=== PATIENT | female | born 1970 | race Caucasian/White ===

== ENCOUNTER → 2021-07-06 | Outpatient (CLI) | payer BC ==
--- NOTE | 2021-07-06 14:24 | US ---
EXAMINATION TYPE: US venous doppler duplex LE RT DATE OF EXAM: 07/06/2021 1:38 PM COMPARISON: NONE CLINICAL HISTORY: M79.661 PAIN RT LOWER LEG,I80.9 PHLEBITIS AND THROMBOPHLEBIT. On 07-01 patient fell off porch resulting in fx to right tib-fib and malleolus; patient complains of severe right lower leg pain and swelling after patient's cast was removed today at orthopedic office. SIDE PERFORMED: Right TECHNIQUE: The lower extremity deep venous system is examined utilizing real time linear array sonog luke with graded compression, doppler sonography and color-flow sonography. VESSELS IMAGED: Common Femoral Vein Deep Femoral Vein Greater Saphenous Vein * Femoral Vein Popliteal Vein Small Saphenous Vein * Proximal Calf Veins (* superficial vessels) Right Leg: Negative for DVT IMPRESSION: No evidence of DVT.
--- NOTE | 2021-07-06 14:33 | CT ---
EXAMINATION TYPE: CT lower leg RT wo con DATE OF EXAM: 07/06/2021 COMPARISON: None available HISTORY: FX LOWER RT LEG CT DLP: 356 mGycm Automated exposure control for dose reduction was used. TECHNIQUE: Multiplanar CT scan of the right lower leg and right ankle without IV contrast administrat ion. 3-D reconstruction images were generated on an independent workstation and reviewed. FINDINGS: Spiral comminuted mildly displaced fracture of the inferior aspect of the right tibial diaphysis, not frankly extending to the adjacent tibial articular surface. Undisplaced fracture of the posterior ma lleolus extending to the adjacent tibial articular surface. Spinal fracture is seen involving the lateral malleolus extending from the posterior aspect superiorl y to the anterior aspect inferiorly with posterior proximal displacement of the distal fracture fragm ent. This fracture is seen extending to the distal tibiofibular articulation as well as the ankle francisco nt space. Rather preserved ankle mortise with a smooth talar dome. Tiny osteophytosis of the medial malleolus. Soft tissue swelling/hematoma surrounding the described fractures mainly around the ankle joint and a long the dorsal aspect of the foot. IMPRESSION: Comminuted spiral fracture of the distal tibial diaphysis with a nondisplaced fracture of the posteri or malleolus and a mildly displaced fracture of the lateral malleolus extending to the ankle joint sp mary as described above. Recommend orthopedic consultation.
== END | disposition home or self-care (01) ==
LOC: RADUSWWP 13:07
PROVIDERS: ATTEND Orthopaedic Surgery
DX: S82.62XA Displaced fracture of lateral malleolus of left fibula, initial encounter for closed fracture (principal); S82.392A Other fracture of lower end of left tibia, initial encounter for closed fracture; I80.9 Phlebitis and thrombophlebitis of unspecified site; X58.XXXA Exposure to other specified factors, initial encounter

== ENCOUNTER 2021-07-13 08:20 | Observation (INO) | payer BC ==
[2021-07-13] MEDS ORDERED: HYDROmorphone 0.5 MG/0.5 ML SYRINGE IVP PRN ×4 (13:21→19:17)
[2021-07-13] MEDS ORDERED: HYDROcodone/APAP 5-325MG 1 EACH TAB PO PRN ×2 (13:21)
--- NOTE | 2021-07-13 13:37 | P.CONS ---
History of Present Illness - Reason for Consult Consult date: 07/13/21 - Chief Complaint Preoperative clearance, medical management - History of Present Illness 50-year-old woman with no significant past medical history, who does not take any medications at home, presented as a direct admission for orthopedic surgery of her right ankle after sustaining a mechanical fall. Patient has no medical history or family history of significant cardiovascular events such as strokes, MIs. Recently, she was able to walk up 3 flights of stairs without any shortness of breath or angina, METs estimation is greater than 4. Patient denies fevers, chills, nausea, vomiting, chest pain, palpitations, syncope, presyncope, cough, dyspnea, abdominal pain, constipation, diarrhea, dysuria, dyschezia, numbness/weakness of extremities. No objective data to review. All Systems reviewed and pertinent positives and negatives noted in HPI, all other symptoms are negative Gen: awake, alert HEENT: normocephalic, atraumatic, good hearing acuity, moist mucous membranes Resp: good air exchange, breathing comfortably with no accessory muscle use CVS: good distal perfusion x 4, GI: soft, NTTP, ND : no SPT, no CVAT, mishra catheter not present MSK: no pitting edema, no clubbing Neuro: non-focal, moving all extremities Psych: cooperative, euthymic mood No labs or images to review at this time Assessment/plan: Preoperative clearance -Patient is low risk for low-risk procedure, is medically cleared to proceed to surgery without any further testing -Obtain CBC, BMP, magnesium following surgery Patient is full code DVT prophylaxis per orthopedic surgery team Medications and Allergies Allergies Allergy/AdvReac Type Severity Reaction Status Date / Time Unable to Assess Allergy Verified 07/09/21 16:29 Physical Exam Osteopathic Statement: *. No significant issues noted on an osteopathic structural exam other than those noted in the History and Physical/Consult.
[2021-07-13] MEDS ORDERED: LIDOCAINE 1% (10MG/ML) FOR IV START INTRADERMA PRN (14:35)
[2021-07-13] MEDS ORDERED: MIDAZOLAM 2 MG/2 ML VIAL IV PRN (14:35)
[2021-07-13] MEDS ORDERED: DEXAMETHASONE SOD PHOSPHATE 4 MG/ML 1 ML VIAL IV ONE (14:35)
[2021-07-13] MEDS ORDERED: ONDANSETRON 4 MG/2 ML VIAL IVP ONE (14:35)
[2021-07-13] MEDS: LACTATED RINGERS 1,000 ML IV SCH (15:15)
[2021-07-13 15:18] LABS: HCT 49.9 % (34.0-46.0); HGB 16.4 gm/dL (11.4-16.0); MCH 30.5 pg (25.0-35.0); MCHC 32.9 g/dL (31.0-37.0); MCV 92.7 fL (80.0-100.0); Mean Platelet Volume 7.4; Platelet Count 369 k/uL (150-450); RBC 5.38 m/uL (3.80-5.40); WBC 7.9 k/uL (3.8-10.6)
[2021-07-13 15:30] LABS: African American GFR (CKD) >90 (>60 ml/min/1.73 sqM); Anion Gap 8 mmol/L; Blood Urea Nitrogen 15 mg/dL (7-17); Calcium 9.5 mg/dL (8.4-10.2); Carbon Dioxide 25 mmol/L (22-30); Chloride 107 mmol/L (98-107); Glucose 80 mg/dL (74-99); Non-African American GFR(CKD) >90 (>60 ml/min/1.73 sqM); Potassium 4.3 mmol/L (3.5-5.1); Sodium 140 mmol/L (137-145)
[2021-07-13] MEDS ORDERED: fentaNYL (PF) 50 MCG/ML 2 ML AMP IV ONE ×2 (15:40→15:50)
[2021-07-13 15:49] LABS: HCG,Qualitative Serum Not Detected
[2021-07-13] MEDS ORDERED: MIDAZOLAM 2 MG/2 ML VIAL ONE (16:32)
[2021-07-13] MEDS ORDERED: SUCCINYLCHOLINE CHLORIDE 100 MG/5 ML SYR IV ONE (16:32)
[2021-07-13] MEDS ORDERED: GLYCOPYRROLATE 0.2 MG/ML 2 ML VIAL ONE (16:32)
[2021-07-13] MEDS ORDERED: BUPIVACAIN-EPI 0.25%-1:200,000 30 ML VIAL ONE (16:32)
[2021-07-13] MEDS ORDERED: LIDOCAINE 2% INJ 20 MG/ML (2 ML VIAL) ONE (16:32)
[2021-07-13] MEDS ORDERED: PROPOFOL 10 MG/ML 20 ML VIAL IV ONE (16:32)
[2021-07-13] MEDS ORDERED: NEOSTIGMINE 1 MG/ML 10 ML VIAL ONE (16:32)
[2021-07-13] MEDS ORDERED: ROCURONIUM 10 MG/ML (5 ML VIAL) IV ONE (16:32)
[2021-07-13] MEDS ORDERED: HYDROmorphone (PF) 1 MG/ML ONE (16:32)
[2021-07-13] MEDS ORDERED: fentaNYL (PF) 50 MCG/ML 2 ML AMP ONE (16:32)
[2021-07-13] MEDS ORDERED: ceFAZolin 3,000 MG in SODIUM CHLORIDE 0.9% IRRIGATIO 3,000 ML IRRIGATION ONE (17:26)
[2021-07-13] MEDS ORDERED: LACTATED RINGERS 1,000 ML IV ONE (18:30)
[2021-07-13] MEDS ORDERED: hydrOXYzine pamoate 25 MG CAP PO PRN (19:17)
[2021-07-13] MEDS ORDERED: SENNOSIDES-DOCUSATE SODIUM 1 EACH TAB PO PRN (19:17)
[2021-07-13] MEDS ORDERED: ONDANSETRON 4 MG/2 ML VIAL IVP PRN (19:17)
--- NOTE | 2021-07-13 19:27 | P.OP ---
Date of Procedure: 07/13/21 Preoperative Diagnosis: 1. Right distal third tibia shaft fracture 2. Right [place] B fibula fracture 3. Right ankle posterior malleolus fracture 4. History of 1 pack per day cigarette smoking Postoperative Diagnosis: Same Procedure(s) Performed: 1. Right tibial intramedullary nail 2. Open reduction internal fixation right ankle posterior malleolus 3. Nonoperative management right ankle lateral malleolus 4. Manual application of joint stress by physician for radiography, right ankle 5. Application of short leg splint by physician, right ankle Implants: David tibial nail 315 mm x 9 mm Anesthesia: GETA Surgeon: Yousif Waters Environmental Services Director #1: Nery Maxwell Estimated Blood Loss (ml): 100 IV fluids (ml): 1,200 Pathology: none sent Condition: stable Disposition: PACU Indications for Procedure: The patient is a very pleasant 50-year-old female with a medical history significant for being a current every day pack per day smoker who sustained a fall in [facility]. She was seen in an emergency department there and diagnosed with an ankle and tibia fracture. She was placed in a splint and referred to follow up with orthopedic surgeon when she got home. I met with the patient and her in the office. She was found to have a displaced distal third tibia fracture as well as an ankle fracture. She was placed in a boot to allow for resolution of soft tissue swelling and a computed tomography scan was obtained. I met with the patient and her preoperatively to review the computed tomography scan and discuss treatment options. My recommendation was to treat her tibia fracture with an intramedullary nail and her ankle fracture with an open reduction and internal fixation. We discussed potential risks and competitions of surgery including but certainly not limited to risks from anesthesia, superficial infection, deep infection, delayed wound healing, damage to local blood vessels or nerves, nonunion, malunion, malreduction, symptomatically hardware, hardware failure, posterior medical arthritis, iatrogenic joint damage, DVT, PE, other medical complications, possibility of needing further surgery, generalized to satisfaction with her surgical outcome, and inability to regain preinjury level of function, possibly loss of life or limb. She voiced understanding that she is at a higher risk of having a complication due to her currently smoking 1 pack of cigarettes a day. I strongly encouraged her to quit. The patient states that she did quit smoking 3 days prior to surgery. I informed her that this will help her healing but she is still at an elevated risk for 9 weeks after quitting. Both her and her understand this and provide their verbal and written consent to go forward with surgery. Operative Findings: After placement of the tibial nail and posterior malleolus screw and manual external rotation stress x-ray was performed. There was no widening of the medial clear space or incisura. The fibula fracture is completely nondisplaced. I interpreted this as a stable ankle mortise not requiring open reduction and internal fixation of the distal fibula or syndesmosis. Description of Procedure: The patient was identified in preoperative holding and the correct right leg was marked with my initials. I reviewed the consent form with the patient and her . All their questions were answered. The patient was then brought back to the operating room by anesthesia. She was positioned on the or table where general anesthetic and preoperative antibiotics were given. A tourniquet was applied to the proximal aspect the right leg was not used during the surgery. The right arm was draped across the chest area and a bump was placed under the right buttock internally rotating the leg to neutral. The left leg was padded and secured to the table with tape. A bone foam ramp was placed under the right leg to facilitate imaging. A nonsterile 10:15 drape was used to isolate the surgical field. A pre-scrub was performed with a chlorhexidine scrub brush. The right leg was then prepped and draped in the standard sterile fashion. Prior to starting surgery timeout was performed identifying the correct patient, operative extremity, and procedure. I began by prophylactically stabilizing the posterior malleolus fracture to prevent inadvertent displacement and placement of the tibial nail. Stab incisions were made over the anterior lateral and posterior lateral aspect distal tibia. Dissection was carried down bluntly with a hemostat and times of a large zrejz-ku-lunuv reduction clamps were placed across the distal tibia from anterior to posteriorly stabilizing the posterior malleolus fracture fragment. A guidewire for a cannulated partially threaded 4.00 m screw was placed using orthogonal fluoroscopic images. A partially threaded cannulated 4.0 mm screw was then placed across the posterior malleolus. The clamp and guidewire were removed and fluoroscopic images were taken. Attention was then turned the distal tibia fracture. Stab incisions were made medially and laterally over the distal tibia. The tibia was reduced using a combination of longitudinal traction and internal rotation. Once the fracture was out to length a large btymv-kr-rruyo reduction clamp was placed with 1 edie over the medial tibia and the other edie over the lateral tibia. The clamp was gently tightened nicely reducing the fracture. The reduction was verified using orthogonal views. At this point approach was made first with patellar nail. A longitudinal incision was made just superior to the patella. Dissection was carried down and the quadriceps tendon was incised sharply in line with the skin incision. A trocar was placed down to the level of the anterior cortex the proximal tibia. A guidepin was placed along the medial border of the lateral tibial spine taking care to have rotation set with the fibular head bisected by the lateral shaft. On the lateral view the guide pin was just at the anterior margin of the tibial shoulder. The guidewire was then advanced and the proximal tibia. Guide pins were placed through the sleeve holding it in place. An opening reamer was then placed. A ball-tipped guidewire was then gently introduced into the tibial shaft and its position was carefully monitored it was passed distally to the physeal scar. I then reamed in half millimeter increments until chatter was obtained with a 9 mm reamer. I then reamed up to a 10.5 mm reamer. A cannulated measuring device was used to measure the nail and a tibial nail was dispensed. I verified that the targeting arm and trochars lined up with the slots in the nail. The nail was then gently inserted over the guidewire until was fully seated distally. Its position was verified proximal and distally with fluoroscopy. 2 interlocking screws were placed through stab incisions proximally using the targeting arm. 2 locking screws were placed di stally using the perfect [place] technique. Final fluoroscopic images were taken in the targeting arm was removed proximally. At this point a manual external rotation stress x-ray was performed of the ankle. The mortise was anatomically reduced and there was no widening of the medial clear space or incisura with manual external rotation of the ankle. I interpreted this as a stable ankle mortise not requiring open reduction internal fixation of the distal fibula or syndesmosis. All wounds were thoroughly irrigated taking care to thoroughly irrigate the knee joint. The quadriceps tendon was closed with a running Quill suture. The deep subcu was reapproximated using a running Quill stitch. The skin was closed using a 2-0 strata fixing 3-0 Monocryl. A sterile dressing was applied. All the stab incisions were closed with 3-0 nylon. Sterile dressings were applied. I verified that all instrument, sponge, and sharp counts were correct. A well-padded bulky Land splint was placed with the ankle in neutral. The patient was then awoken from her anesthetic, transferred from the OR table to the [facility], and brought to recovery having top of the procedure well. Nery Maxwell PA-C was required as a skilled engineering assistant due to the complexity of the surgery for patient positioning, draping, retraction, assistance during surgery, closure of wound, and application of splint. Plan: The patient is going to be strictly nonweightbearing for 6 weeks. She'll need aspirin for DVT prophylaxis. Follow-up in the office in 2 weeks for splint removal and x-rays of the right tibia and ankle, nonweightbearing views. Anticipate discharge home tomorrow once she passes therapy and her pain is controlled.
--- NOTE | 2021-07-13 20:25 | P.ANPRN ---
Procedure Note - Anesthesia - Nerve Block Performed Right Adductor Canal Single Time Out Performed: Yes Date of Procedure: 07/13/21 Procedure Start Time: 19:27 Procedure Stop Time: 19:33 Location of Patient: Phase I Indication: Acute Post-Operative Pain, Requested by Surgeon Specifically requested for management of pain by DrEdgar: Yousif Waters (') Sedation Type: Sedate with meaningful contact maintained Preparation: Sterile Prep, Sterile Dressing Position: Supine Needle Types: Pajunk Needle Gauge: 21 Ultrasound used to visualize needle placement: Yes Ultrasound used to observe medication spread: Yes Injectate: Other (see comment) (maracaine 0.25 % 25 ml) Blood Aspirated: No Pain Paresthesia on Injection Noted: No Resistance on Injection: Normal Image Stored and Saved: Yes Events: Uneventful and Well Tolerated
--- NOTE | 2021-07-13 20:27 | P.ANPRN ---
Procedure Note - Anesthesia - Nerve Block Performed Right Popliteal Single Time Out Performed: Yes Date of Procedure: 07/13/21 Procedure Start Time: 19:35 Procedure Stop Time: 19:42 Location of Patient: Phase I Indication: Requested by Surgeon Specifically requested for management of pain by DrEdgar: Yousif Waters Sedation Type: Sedate with meaningful contact maintained Preparation: Sterile Prep Position: Supine Needle Types: Pajunk Needle Gauge: 21 Ultrasound used to visualize needle placement: Yes Ultrasound used to observe medication spread: Yes Injectate: Other (see comment) (Maracaine 0.25 % with epi 25 ml) Blood Aspirated: No Pain Paresthesia on Injection Noted: No Resistance on Injection: Normal Image Stored and Saved: Yes Events: Uneventful and Well Tolerated
--- NOTE | 2021-07-13 20:29 | XR ---
EXAMINATION TYPE: XR tibia fibula RT DATE OF EXAM: 07/13/2021 COMPARISON: NONE HISTORY: Surgery TECHNIQUE: 18 views FINDINGS: A series of fluoroscopic images was obtained that shows placement of intramedullary kashif and screws fixating the fracture of the distal shaft of the tibia. Fragments are in anatomic position. IMPRESSION: No complicating process seen.
[2021-07-13] MEDS: ASPIRIN 81 MG PO SCH (22:08)
--- NOTE | 2021-07-13 22:45 | FL ---
EXAMINATION TYPE: FL guidance operating room DATE OF EXAM: 07/13/2021 CLINICAL HISTORY: Right leg fracture. TECHNIQUE: Fluoroscopy. COMPARISON: CT right leg one week ago. FINDINGS: Fluoroscopic guidance was provided during open reduction internal fixation procedure perfo rmed by Dr. Waters. A total of 4.36 minutes of fluoroscopic time was utilized during the procedure and 0 spot images saved to PACS. IMPRESSION: As Above.
[2021-07-14] MEDS: HYDROmorphone 1 MG/ML 1 ML SYRINGE IVP PRN ×5 (00:48→22:41)
[2021-07-14] MEDS: ASPIRIN 81 MG PO SCH ×2 (07:46→20:47)
[2021-07-14 09:11] LABS: Basophils # (A) 0.03 X 10*3/uL (0.00-0.10); Basophils % (A) 0.2 %; Eosinophils # (A) 0.04 X 10*3/uL (0.04-0.35); Eosinophils % (A) 0.3 %; HCT 43.7 % (37.2-46.3); Immature Grans, Automated 0.3 %; Lymphocytes # (A) 1.82 X 10*3/uL (0.90-5.00); Lymphocytes % (A) 14.2 %; MCH 29.3 pg (27.0-32.0); MCV 91.4 fL (80.0-97.0); Mean Platelet Volume 10.3 fL (9.5-12.2); Monocytes # (A) 1.17 X 10*3/uL (0.20-1.00); Monocytes % (A) 9.1 %; NRBC Per 100 WBC 0 /100 WBCS (0.0-0.0); Neutrophils # (A) 9.72 X 10*3/uL (1.80-7.70); Neutrophils % (A) 75.9 %; Platelet Count 355 X 10*3/uL (140-440); RBC 4.78 X 10*6/uL (4.10-5.20); RDW 13.8 % (11.5-14.5); WBC 12.82 X 10*3/uL (4.50-10.00)
--- NOTE | 2021-07-14 10:55 | P.PN ---
Subjective Progress Note Date: 07/14/21 This patient is a 50- year old female who is status-post right tibial intramedullary nail and ORIF right ankle posterior malleolus on 07/13/21. Today is postoperative day #1. Patient is seen and examined bedside. Patient states her pain is well-controlled in her right lower leg is numb due to the block provided by anesthesia yesterday post-operatively. Patient has not yet been up with physical therapy. She has no new complaints or concerns this morning. She denies chest pain, shortness of breath, nausea, vomiting, fevers, chills. Vital signs stable. Objective - Vital Signs Vital signs: Vital Signs Temp 98.2 F 07/14/21 07:25 Pulse 49 L 07/14/21 07:25 Resp 17 07/14/21 07:45 BP 100/63 07/14/21 07:25 Pulse Ox 93 L 07/14/21 07:25 Intake & Output 07/13/21 07/14/21 07/14/21 18:59 06:59 18:59 Intake Total 1251 1290 180 Output Total 50 Balance 1201 1290 180 Weight 95.45 kg Intake: IV 1251 500 Intake, IV Titration 290 Amount Lactated Ringers 1,000 ml 240 @ 20 mls/hr IV .Q24H [facility] Rx#:[id number] ceFAZolin 2 gm In Sodium 50 Chloride 0.9% 50 ml @ 100 mls/hr IVPB ONCE PRN Rx# :[id number] Oral 500 180 Output: Estimated Blood Loss 50 Other: # Voids 1 2 - Exam On examination, patient is lying in bed in no apparent distress. She is alert and oriented 3. On inspection of the right lower extremity, there is a clean, dry, intact bulky Land splint in place. There is a clean, dry, intact dressing in place at the proximal knee. The toes are warm and well-perfused with brisk capillary refill. No pain with passive range of motion of the toes. - Labs CBC & Chem 7: 07/14/21 04:51 07/13/21 14:44 Labs: Abnormal Lab Results - Last 24 Hours (Table) 07/13/21 07/14/21 Range/Units 14:44 04:51 WBC 12.82 H (4.50-10.00) X 10*3/uL Hgb 16.4 H (11.4-16.0) gm/dL Hct 49.9 H (34.0-46.0) % Neutrophils # 9.72 H (1.80-7.70) X 10*3/uL Monocytes # 1.17 H (0.20-1.00) X 10*3/uL Assessment and Plan Assessment: Status-post right tibial intramedullary nail and ORIF right ankle posterior malleolus on 07/13/21. Post-operative day #1. Plan: - Strict nonweightbearing operative extremity. Keep bulky Land splint intact. - Keep operative extremity elevated for swelling and pain control. - Pain management as needed. Decrease use of IV diluadid as tolerated. - Aspirin 81mg BID for DVT prophylaxis. - Physical therapy for gait and balance training. - 2 doses post-operative IV antibiotics complete. - Internal medicine for mimi-operative medical management. - Anticipate discharge home tomorrow if pain adequately controlled.
[2021-07-14] MEDS: HYDROcodone/APAP 10-325MG 1 EACH TAB PO PRN ×2 (10:56→16:53)
--- NOTE | 2021-07-14 13:18 | P.PN ---
Subjective Progress Note Date: 07/14/21 No new complaints today. Doing well post-op. Gen: awake, alert HEENT: normocephalic, atraumatic, good hearing acuity, moist mucous membranes Resp: good air exchange, breathing comfortably with no accessory muscle use CVS: good distal perfusion x 4, GI: soft, NTTP, ND : no SPT, no CVAT, mishra catheter not present MSK: no pitting edema, no clubbing Neuro: non-focal, moving all extremities Psych: cooperative, euthymic mood No labs or images to review at this time Assessment/plan: Preoperative clearance -Patient is low risk for low-risk procedure, is medically cleared to proceed to surgery without any further testing -Obtain CBC, BMP, magnesium following surgery Patient is full code DVT prophylaxis per orthopedic surgery team Objective - Vital Signs Vital signs: Vital Signs Temp 98.2 F 07/14/21 07:25 Pulse 49 L 07/14/21 07:25 Resp 17 07/14/21 07:45 BP 100/63 07/14/21 07:25 Pulse Ox 93 L 07/14/21 07:25 Intake & Output 07/13/21 07/14/21 07/14/21 18:59 06:59 18:59 Intake Total 1251 1290 180 Output Total 50 Balance 1201 1290 180 Weight 95.45 kg Intake: IV 1251 500 Intake, IV Titration 290 Amount Lactated Ringers 1,000 ml 240 @ 20 mls/hr IV .Q24H [facility] Rx#:[id number] ceFAZolin 2 gm In Sodium 50 Chloride 0.9% 50 ml @ 100 mls/hr IVPB ONCE PRN Rx# :[id number] Oral 500 180 Output: Estimated Blood Loss 50 Other: # Voids 1 2 1 - Labs CBC & Chem 7: 07/14/21 04:51 07/13/21 14:44 Labs: Abnormal Lab Results - Last 24 Hours (Table) 07/13/21 07/14/21 Range/Units 14:44 04:51 WBC 12.82 H (4.50-10.00) X 10*3/uL Hgb 16.4 H (11.4-16.0) gm/dL Hct 49.9 H (34.0-46.0) % Neutrophils # 9.72 H (1.80-7.70) X 10*3/uL Monocytes # 1.17 H (0.20-1.00) X 10*3/uL
[2021-07-14] MEDS: LACTATED RINGERS 1,000 ML IV SCH (16:31)
[2021-07-15] MEDS: HYDROmorphone 1 MG/ML 1 ML SYRINGE IVP PRN (01:55)
[2021-07-15] MEDS: HYDROcodone/APAP 10-325MG 1 EACH TAB PO PRN ×3 (06:04→14:50)
[2021-07-15] MEDS: ASPIRIN 81 MG PO SCH (08:30)
[2021-07-15 08:43] VITALS: BP 111/71
--- NOTE | 2021-07-15 09:52 | P.DS ---
Providers Date of admission: 07/13/21 08:20 Expected date of discharge: 07/15/21 Attending physician: Yousif Waters Consults: 07/13/21 13:25 Consult Physician Routine Consulting Provider: Lucia Brantley Consult Reason/Comments: medical management Do you want consulting provider notified?: Already Contacted Primary care physician: Stated None Hospital Course: This is a 50-year-old female who sustained a ground level fall resulting in a right distal third tibia fracture, right distal fibula fracture, and right ankle posterior malleolus fracture. Patient was initially evaluated in the office by Dr. Waters and surgery was scheduled. Patient underwent right tibial intramedullary nail and ORIF right ankle posterior malleolus on 07/13/21. The procedure was performed without complication or sequelae. The patient is doing fairly well post-operatively. Vital signs and labs are stable on postoperative day #2. Patient was examined bedside today. She is up to the bedside chair. Patient states she is doing well and has no specific complaints. Her pain is well- controlled on oral medications. She has passed physical therapy. Patient is tolerating her diet well. She denies chest pain, shortness of breath, nausea, vomiting, fevers, chills. No new complaints or concerns on the day of discharge. On examination, the patient is sitting up in the bedside chair. She is alert and oriented 3. On inspection of the right lower extremity, there is a clean, dry, intact bulky Land splint in place. The visible portion of the toes are warm and well perfused with brisk capillary refill. Patient is able to wiggle toes appropriately. No pain with passive range of motion of the toes. Clean, dry, intact Opsite dressing intact at the proximal knee. Patient is discharged home today in good condition, pending medical clearance. Patient will follow-up with Dr. Waters in the office in 2 weeks. Please see med rec for accurate list of discharge medication. Plan - Discharge Summary New Discharge Prescriptions: New HYDROcodone/APAP 10-325MG [[place] 10-325] 1 tab PO Q4-6H PRN #40 tab PRN Reason: Pain Aspirin 81 mg PO BID 30 Days #60 tab Docusate [Colace] 100 mg PO BID #60 capsule Discharge Medication List Aspirin 81 mg PO BID 30 Days #60 tab 07/15/21 [Rx] Docusate [Colace] 100 mg PO BID #60 capsule 07/15/21 [Rx] HYDROcodone/APAP 10-325MG [[place] 10-325] 1 tab PO Q4-6H PRN #40 tab 07/15/21 [Rx] Follow up Appointment(s)/Referral(s): Yousif Waters MD [Medical Doctor] - 2 Weeks Activity/Diet/Wound Care/Special Instructions: Strict non-weight bearing operative extremity. Keep bulky Land splint clean, dry, intact. Do not remove splint. Keep operative extremity elevated for swelling and pain control. Take pain medications as needed. Take aspirin 81mg BID x 4 weeks for blood clot prevention. Follow-up in the office in [address] Waters. Call the office with any questions or concerns, Discharge Disposition: HOME SELF-CARE
[2021-07-15 12:03] VITALS: PULSE 89; RESP 16; TEMP 98.2
--- NOTE | 2021-07-15 14:21 | P.PN ---
Subjective Progress Note Date: 07/15/21 No new complaints today. Doing well post-op. Medically cleared for discharge. Gen: awake, alert HEENT: normocephalic, atraumatic, good hearing acuity, moist mucous membranes Resp: good air exchange, breathing comfortably with no accessory muscle use CVS: good distal perfusion x 4, GI: soft, NTTP, ND : no SPT, no CVAT, mishra catheter not present MSK: no pitting edema, no clubbing Neuro: non-focal, moving all extremities Psych: cooperative, euthymic mood No labs or images to review at this time Assessment/plan: Preoperative clearance -Patient is low risk for low-risk procedure, is medically cleared to proceed to surgery without any further testing -Obtain CBC, BMP, magnesium following surgery Patient is full code DVT prophylaxis per orthopedic surgery team Objective - Vital Signs Vital signs: Vital Signs Temp 98.2 F 07/15/21 11:59 Pulse 89 07/15/21 11:59 Resp 16 07/15/21 11:59 BP 111/71 07/15/21 08:10 Pulse Ox 96 07/15/21 11:59 Intake & Output 07/14/21 07/15/21 07/15/21 18:59 06:59 18:59 Intake Total 180 240 Balance 180 240 Intake: Intake, IV Titration 240 Amount Lactated Ringers 1,000 ml 240 @ 20 mls/hr IV .Q24H [facility] Rx#:[id number] Oral 180 Other: Voiding Method Bedside Commode # Voids 1 1 - Labs CBC & Chem 7: 07/14/21 04:51 07/13/21 14:44
[2021-07-15] MEDS: LACTATED RINGERS 1,000 ML IV SCH (15:47)
== END 2021-07-15 18:14 | disposition home or self-care (01) ==
LOC: 4SSUR 08:20 → EDSTATUS 16:30 → 5NMEDONC 07-14 20:32
PROVIDERS: ADMIT Orthopaedic Surgery; ATTEND Orthopaedic Surgery
DX: S82.209A Unspecified fracture of shaft of unspecified tibia, initial encounter for closed fracture (principal); S82.401A Unspecified fracture of shaft of right fibula, initial encounter for closed fracture; S82.891A Other fracture of right lower leg, initial encounter for closed fracture; W01.0XXA Fall on same level from slipping, tripping and stumbling without subsequent striking against object, initial encounter; Z97.2 Presence of dental prosthetic device (complete) (partial); Z90.710 Acquired absence of both cervix and uterus; Z83.3 Family history of diabetes mellitus; F17.210 Nicotine dependence, cigarettes, uncomplicated; Z79.1 Long term (current) use of non-steroidal anti-inflammatories (NSAID); Z79.899 Other long term (current) drug therapy; Z79.891 Long term (current) use of opiate analgesic; Z88.0 Allergy status to penicillin
CPT/HCPCS: 97530; 97161; 64447; 64445; 76942; 80048; 85025; 85027; 84703; 73590; 27769; G0378 ×3; G0379; C1713; J2250; J1100; J2710; J0690 ×3; J2405 ×2; J3010; J1170 ×4; J0330; J2704; J2001

== ENCOUNTER 2021-07-25 07:20 | Observation (INO) | payer BC ==
[2021-07-25] MEDS ORDERED: VANCOMYCIN IV PER PHARMACY 1 EACH MISC MISCELLANE PRN (07:46)
--- NOTE | 2021-07-25 07:51 | ED ---
General Adult HPI - General Chief complaint: Eye Problems Stated complaint: Periorbital Cellulitis of Left Eye Time Seen by Provider: 07/25/21 07:35 Source: patient, RN notes reviewed, old records reviewed Mode of arrival: ambulatory Limitations: no limitations - History of Present Illness Initial comments: Patient is a 50-year-old female with past medical history remarkable for recent right lower extremity surgery secondary to a right malleolus fracture. Presents to the emergency department today due to multi-day history of left periorbital swelling. States it started out looking like a black eye under her left eye but seems to be getting worse. Also noticed some tenderness in the lymph nodes in her left neck extending down towards her shoulder. She was seen by her PCP outpatient on and started on antibiotics, oral clindamycin and tobramycin eyedrops. However the swelling seems to be getting worse. She presents emergency department for failed outpatient treatment of this. Denies any pain with eye movement. Denies any change in visual acuity. Wears glasses at baseline but denies any worsening blurry vision or changes. Denies any difficulty swallowing, difficulty with breathing. Denies any tongue or mouth swelling. Denies any history of oral infections. Denies any ear pain, loss in hearing. Has no other acute complaints at this time. Presents over concern for worsening infection on the left side around her eye. - Related Data Previous Rx's Medication Instructions Recorded Aspirin 81 mg PO BID 30 Days #60 tab 07/15/21 Docusate [Colace] 100 mg PO BID #60 capsule 07/15/21 HYDROcodone/APAP 10-325MG [[place] 1 tab PO Q4-6H PRN #40 tab 07/15/21 10-325] Allergies Allergy/AdvReac Type Severity Reaction Status Date / Time amoxicillin Allergy Swelling Verified 07/25/21 07:33 Latex, Natural Rubber Allergy Rash/Hives Verified 07/25/21 07:33 Review of Systems ROS Statement: Those systems with pertinent positive or pertinent negative responses have been documented in the HPI. Review of Systems: CONST: Denies fever EYES: Denies blurry vision ENT: Denies nasal congestion C/V: Denies Chest pain RESP: Denies shortness of breath GI: Denies abdominal pain : Denies dysuria SKIN: Endorses swelling around left eye. MSK: Denies joint pain. NEURO: Denies headache ROS Other: All systems not noted in ROS Statement are negative. Past Medical History Past Medical History: No Reported History History of Any Multi-Drug Resistant Organisms: None Reported Past Surgical History: Hysterectomy, Orthopedic Surgery Past Psychological History: No Psychological Hx Reported Smoking Status: Never smoker Past Alcohol Use History: None Reported Past Drug Use History: None Reported General Exam - General Exam Comments Initial Comments: General: Appears in no acute distress. HEAD: Normal with no signs of head trauma. EYES: PERRLA, EOMI. Left mild conjunctival injection. No proptosis. No pain with extraocular eye movements. No chemosis. No globe displacement. No limits eye movements. No change in vision. Vision appears to be 20/20 with glasses correction. Accommodation is intact. ENT: Hearing grossly intact, normal oropharynx. No stridor auscultated. No swelling intraorally. Tender to palpation along the anterior cervical lymph node chain of the left neck. RESPIRATORY: Clear breath sounds bilaterally. No wheezes, rales, or rhonchi. No hypoxia. No increased work of breathing. C/V: Regular rate and rhythm. S1 and S2 auscultated, no edema, peripheral pulses 2+ and intact throughout ABD: Abd is soft, nontender, nondistended EXT: Surgical cast present over right lower extremity status post surgery. No other findings. SKIN: Erythema and swelling periorbitally on the left. No proptosis. No obvious purulent discharge. No area of fluctuance or induration. Erythema is not raised. NEURO: Alert and oriented 4. No focal sensory strength deficits. Limitations: no limitations Course Vital Signs 07/25/21 07:32 Temperature 98.3 F Pulse Rate 75 Respiratory 20 Rate Blood Pressure 110/66 O2 Sat by Pulse 96 Oximetry Medical Decision Making - Medical Decision Making Based on the patient's presentation and physical exam, I'm concerned for failed outpatient treatment of what appears to be periorbital cellulitis. Cannot rule out orbital cellulitis at this time and due to worsening of the erythema and what appears to be infection, we will obtain CT max face as well as neck to rule out infectious spread. Basic labs as well as blood cultures will be obtained. Patient will be admitted. She'll be started on IV vancomycin as well as Rocephin, she does have a penicillin ALLERGY and would not tolerate Unasyn. Ophthalmology will be consulted to evaluate the patient. She declines analgesic medication at this time. She was in agreement this plan. Patient's laboratory studies are unremarkable. CT imaging with contrast revealed periorbital swelling which is mild of the anterior soft tissues on the left with no significant abnormality otherwise. I discussed findings with patient. She would like pain medication at this time and will be administered [place] 10, which is her dose that she is on postsurgery at her request. I explained that due to worsening swelling, I would like to adm it her to the hospital for continued IV antibiotics. She was in agreement this plan. I will also consult ophthalmology to evaluate the patient. I explained That she is preorbital cellulitis, failed outpatient treatment. She expressed understanding. Patient's PCP does not admit here, and since will be an observation admission, she will be admitted to [facility]. I spoke with Dr. Beck, who accepted the patient and requested an ortho consult in addition to the optho consult. - Lab Data Result diagrams: 07/25/21 07:56 07/25/21 07:56 Lab Results 07/25/21 07/25/21 Range/Units 07:56 07:56 WBC 7.1 (3.8-10.6) k/uL RBC 5.11 (3.80-5.40) m/uL Hgb 15.4 (11.4-16.0) gm/dL Hct 46.0 (34.0-46.0) % MCV 90.1 (80.0-100.0) fL MCH 30.0 (25.0-35.0) pg MCHC 33.4 (31.0-37.0) g/dL RDW 13.8 (11.5-15.5) % Plt Count 482 H (150-450) k/uL MPV 7.5 Neutrophils % 50 % Lymphocytes % 37 % Monocytes % 5 % Eosinophils % 5 % Basophils % 1 % Neutrophils # 3.5 (1.3-7.7) k/uL Lymphocytes # 2.6 (1.0-4.8) k/uL Monocytes # 0.4 (0-1.0) k/uL Eosinophils # 0.4 (0-0.7) k/uL Basophils # 0.1 (0-0.2) k/uL Sodium 140 (137-145) mmol/L Potassium 4.4 (3.5-5.1) mmol/L Chloride 106 (98-107) mmol/L Carbon Dioxide 22 (22-30) mmol/L Anion Gap 12 mmol/L BUN 15 (7-17) mg/dL Creatinine 0.59 (0.52-1.04) mg/dL Est GFR (CKD-EPI)AfAm >90 (>60 ml/min/1.73 sqM) Est GFR (CKD-EPI)NonAf >90 (>60 ml/min/1.73 sqM) Glucose 95 (74-99) mg/dL Calcium 9.6 (8.4-10.2) mg/dL Magnesium 2.1 (1.6-2.3) mg/dL Disposition Clinical Impression: Periorbital cellulitis of left eye Disposition: ADMITTED IP TO THIS HOSP Condition: Stable Referrals: Isabelle Ding DO [Primary Care Provider] - 1-2 days Time of Disposition: 09:05
[2021-07-25 08:21] LABS: Basophils # (A) 0.1 k/uL (0-0.2); Basophils % (A) 1 %; Eosinophils # (A) 0.4 k/uL (0-0.7); Eosinophils % (A) 5 %; HGB 15.4 gm/dL (11.4-16.0); Lymphocytes # (A) 2.6 k/uL (1.0-4.8); Lymphocytes % (A) 37 %; MCHC 33.4 g/dL (31.0-37.0); MCV 90.1 fL (80.0-100.0); Mean Platelet Volume 7.5; Monocytes # (A) 0.4 k/uL (0-1.0); Monocytes % (A) 5 %; Neutrophils # (A) 3.5 k/uL (1.3-7.7); Neutrophils % (A) 50 %; Platelet Count 482 k/uL (150-450); RBC 5.11 m/uL (3.80-5.40); RDW 13.8 % (11.5-15.5); WBC 7.1 k/uL (3.8-10.6)
[2021-07-25 08:24] LABS: African American GFR (CKD) >90 (>60 ml/min/1.73 sqM); Anion Gap 12 mmol/L; Blood Urea Nitrogen 15 mg/dL (7-17); Calcium 9.6 mg/dL (8.4-10.2); Carbon Dioxide 22 mmol/L (22-30); Chloride 106 mmol/L (98-107); Glucose 95 mg/dL (74-99); Magnesium 2.1 mg/dL (1.6-2.3); Non-African American GFR(CKD) >90 (>60 ml/min/1.73 sqM); Potassium 4.4 mmol/L (3.5-5.1); Sodium 140 mmol/L (137-145)
--- NOTE | 2021-07-25 08:48 | CT ---
EXAMINATION TYPE: CT soft tissue neck w con DATE OF EXAM: 07/25/2021 8:34 AM COMPARISON: None HISTORY: Lt neck swelling and Lt periorbital eye swelling CT DLP: 310.5 mGycm Automated exposure control for dose reduction was used. CONTRAST: CT scan of the neck is performed following with IV Contrast, patient injected with 100 mL of Isovue 3 00. Axial images are obtained, coronal and sagittal reformatted images are reviewed. FINDINGS: There is mild soft tissue swelling of the anterior periorbital soft tissues but the left globe is int act and there is no intraconal abnormality. The extraocular muscles are normal in size and symmetric with the right orbit which is normal. Thyroid gland is normal without organomegaly or mass. Cricoid arytenoid and thyroid cartilages are in tact. Vocal cords are normal and symmetric. Tongue base, epiglottis and aryepiglottic folds piriform sinuses and vallecula are normal and symmetr ic. The parotid and submandibular glands are normal and symmetric without enlargement or focal mass. The parapharyngeal and pharyngeal soft tissues are normal. There is no adenopathy or abscess in the neck. The great vessels the neck are normal. Paranasal sinuses, mastoid air cells and middle ear cavities are well aerated. The osseous structures are intact. IMPRESSION: Mild soft tissue swelling of the anterior periorbital soft tissues with no other significant abnormal ity seen.
[2021-07-25] MEDS ORDERED: HYDROcodone/APAP 10-325MG 1 EACH TAB PO ONE (08:49)
[2021-07-25] MEDS ORDERED: VANCOMYCIN 2,000 MG in SODIUM CHLORIDE 0.9% 500 ML 500 ML IVPB ONE (09:00)
[2021-07-25] MEDS ORDERED: NALOXONE 0.4 MG/ML 1 ML VIAL IV PRN (09:15)
[2021-07-25] MEDS ORDERED: HYDROcodone/APAP 10-325MG 1 EACH TAB PO PRN (09:17)
[2021-07-25] MEDS ORDERED: DIPH,PERTUS(ACELL)TETVAC-LF 0.5 ML VIAL IM ONE (09:38)
--- NOTE | 2021-07-25 12:17 | P.HPIM ---
History of Present Illness H&P Date: 07/25/21 Chief Complaint: L eye swelling Patient is a 50-year-old female with no past medical history presents ED for left eye swelling. Patient reported swelling that started on Tuesday. She noticed darkness around the left eye. She went to go see her PCP and was given tobramycin eyedrops along with clindamycin by mouth. She denies any changes in vision or discharge from the eye. She also reports tenderness along the left side of her neck has been ongoing for the past 1-2 days. When her symptoms persisted she decided to come to the ED. She denies any headache, lower v omiting, fever or chills, cough, chest pain, shortness of breath, palpitations, changes in urination or bowel habits. No changes in appetite or weight. In the ED, her vital signs are stable. CBC showed platelet count of 42. CMP was within normal limits. CT of the neck showed mild soft tissue swelling of the anterior periorbital soft tissue. Patient is admitted for periorbital cellulitis, failed outpatient treatment. General: [non toxic], [no distress], [appears at stated age] Derm: [warm], [dry] Head: [atraumatic], [normocephalic], [symmetric], [cervical lymphadenopathy left neck] Eyes: [EOMI], [no lid lag], [anicteric sclera], [swelling around the left periorbital region] Mouth: [no lip lesion], [mucus membranes moist] Cardiovascular: [S1S2 reg], [no murmur], [positive posterior tibial pulse bilateral], Lungs: [CTA bilateral], [no rhonchi, no rales] , [no accessory muscle use] Abdominal: [soft], [ nontender to palpation], [no guarding], [no appreciable organomegaly] Ext: [no gross muscle atrophy], [no edema], [no contractures] Neuro: [ CN II-XI grossly intact], [no focal neuro deficits] Psych: [Alert], [oriented], [appropriate affect] #Periorbital cellulitis #Left-sided neck pain #Status post right tibial, fibular, posterior malleolus fracture status post right tibial intramedullary nail and ORIF of the right ankle #Obesity Patient presents with swelling of her left eye. Computed tomography scan is consistent with periorbital cellulitis. She has failed outpatient antibiotic treatment. She'll be started on Rocephin and vancomycin. Ophthalmology will be consulted for further management of this patient. Her left neck pain is likely related to lymphadenopathy. Her pain will be controlled with Tylenol and [place] as needed. Orthopedic surgery will be consulted to follow the patient with regard to her recent right tibial IM nail and ORIF of the right ankle. Patient would benefit from a structured weight loss program. Her home medication of aspirin will be restarted. DVT prophylaxis: [Heparin] Discussed with: [Patient and ] Anticipated discharge: [1-2 days] Anticipated discharge place: [Home] A total of [45] minutes was spent on the care of this complex patient more than 50% of the time was spent in counseling and care coordination. Patient names her decision maker if she can make decisions for herself. Patient would like to be full code. Past Medical History Past Medical History: No Reported History History of Any Multi-Drug Resistant Organisms: None Reported Past Surgical History: Hysterectomy, Orthopedic Surgery Additional Past Surgical History / Comment(s): recent tib/fib fracture with surgery about 2 weeks ago. Past Anesthesia/Blood Transfusion Reactions: No Reported Reaction Past Psychological History: No Psychological Hx Reported Smoking Status: Never smoker Past Alcohol Use History: None Reported Past Drug Use History: None Reported Medications and Allergies Home Medications Medication Instructions Recorded Confirmed Type Aspirin 81 mg PO BID 30 Days #60 tab 07/15/21 07/25/21 Rx Docusate [Colace] 100 mg PO BID #60 capsule 07/15/21 07/25/21 Rx HYDROcodone/APAP 10-325MG [[place] 1 tab PO Q4-6H PRN #40 tab 07/15/21 07/25/21 Rx 10-325] Clindamycin HCl 300 mg PO TID 07/25/21 07/25/21 History Allergies Allergy/AdvReac Type Severity Reaction Status Date / Time amoxicillin Allergy Swelling Verified 07/25/21 11:23 Latex, Natural Rubber Allergy Rash/Hives Verified 07/25/21 11:23 Physical Exam Vitals: Vital Signs Temp Pulse Pulse Resp BP BP Pulse Ox 07/25/21 10:51 97.7 F 64 18 106/69 97 07/25/21 09:33 68 16 118/73 97 07/25/21 07:32 98.3 F 75 20 110/66 96 Intake and Output 07/24/21 07/25/21 07/25/21 22:59 06:59 14:59 Other: Weight 95.254 kg Results CBC & Chem 7: 07/25/21 07:56 07/25/21 07:56 Labs: Abnormal Lab Results - Last 24 Hours (Table) 07/25/21 Range/Units 07:56 Plt Count 482 H (150-450) k/uL Thrombosis Risk Factor Assmnt - Choose All That Apply Any of the Below Risk Factors Present?: Yes Each Factor Represents 1 point: Age 41-60 years, Obesity (BMI >25) Other Risk Factors: No Other congenital or acquired thrombophilia - If yes, enter type in comment: No Thrombosis Risk Factor Assessment Total Risk Factor Score: 2 Thrombosis Risk Factor Assessment Level: Low Risk
[2021-07-25] MEDS: HEPARIN SODIUM,PORCINE/PF 5,000 UNIT/0.5 ML SYRINGE SQ SCH ×2 (16:18→21:48)
[2021-07-25] MEDS: HYDROcodone/APAP 10-325MG 1 EACH TAB PO PRN (16:20)
[2021-07-25] MEDS: ASPIRIN 81 MG PO SCH (20:03)
[2021-07-25] MEDS: DOCUSATE 100 MG CAP PO SCH (20:04)
[2021-07-25] MEDS: VANCOMYCIN 1,750 MG in SODIUM CHLORIDE 0.9% 500 ML 500 ML IVPB SCH (21:38)
[2021-07-26] MEDS: HEPARIN SODIUM,PORCINE/PF 5,000 UNIT/0.5 ML SYRINGE SQ SCH ×3 (07:45→22:49)
[2021-07-26] MEDS: ASPIRIN 81 MG PO SCH ×2 (07:46→20:13)
[2021-07-26] MEDS: DOCUSATE 100 MG CAP PO SCH ×2 (07:47→20:13)
[2021-07-26] MEDS: IBUPROFEN 400 MG TAB PO PRN ×2 (07:58→18:05)
[2021-07-26 09:06] LABS: Basophils # (A) 0.05 X 10*3/uL (0.00-0.10); Basophils % (A) 0.7 %; Eosinophils % (A) 5.4 %; HCT 42.6 % (37.2-46.3); HGB 13.9 g/dL (12.0-15.0); Immature Grans, Automated 0.1 %; Lymphocytes # (A) 2.09 X 10*3/uL (0.90-5.00); Lymphocytes % (A) 28.1 %; MCH 29.4 pg (27.0-32.0); MCHC 32.6 g/dL (32.0-37.0); MCV 90.1 fL (80.0-97.0); Mean Platelet Volume 10.1 fL (9.5-12.2); Monocytes # (A) 0.82 X 10*3/uL (0.20-1.00); NRBC Per 100 WBC 0 /100 WBCS (0.0-0.0); Neutrophils # (A) 4.06 X 10*3/uL (1.80-7.70); Neutrophils % (A) 54.7 %; Platelet Count 425 X 10*3/uL (140-440); RBC 4.73 X 10*6/uL (4.10-5.20); RDW 13.9 % (11.5-14.5); WBC 7.43 X 10*3/uL (4.50-10.00)
[2021-07-26] MEDS: VANCOMYCIN 1,750 MG in SODIUM CHLORIDE 0.9% 500 ML 500 ML IVPB SCH ×2 (09:15→22:38)
[2021-07-26 10:06] LABS: African American GFR (CKD) 122.3 (60.0-200.0); Anion Gap 11.4 mmol/L (10.00-18.00); BUN/Creat Ratio 17.5 Ratio (12.00-20.00); Blood Urea Nitrogen 10.5 mg/dL (9.0-27.0); Calcium 9.3 mg/dL (8.7-10.3); Carbon Dioxide 23.6 mmol/L (20.0-27.5); Non-African American GFR(CKD) 105.5 (60.0-200.0); Potassium 4.1 mmol/L (3.5-5.5)
--- NOTE | 2021-07-26 11:06 | P.CNOR ---
History of Present Illness - HPI Consult date: 07/26/21 History of present illness: This is a 50-year-old female who is admitted for periorbital cellulitis. Orthopedics is consulted due to recent ORIF of the right ankle and intramedullary nailing of the right tibia on 07/13/[address] Waters. Patient is seen and evaluated at bedside today. Patient states that her pain is well-controlled in the right lower extremity and she has no new complaints. Patient states that her symptoms of eye swelling started Tuesday and did not improve with outpatient antibiotics so she was admitted to [facility] on 07/25/2021. Patient denies any fever/chills, numbness, weakness, tingling, abdominal pain, shortness of breath or chest pain. Review of Systems See HPI. Past Medical History Past Medical History: No Reported History History of Any Multi-Drug Resistant Organisms: None Reported Past Surgical History: Hysterectomy, Orthopedic Surgery Additional Past Surgical History / Comment(s): recent tib/fib fracture with surgery about 2 weeks ago. Past Anesthesia/Blood Transfusion Reactions: No Reported Reaction Past Psychological History: No Psychological Hx Reported Smoking Status: Never smoker Past Alcohol Use History: None Reported Past Drug Use History: None Reported Medications and Allergies Home Medications Medication Instructions Recorded Confirmed Type Aspirin 81 mg PO BID 30 Days #60 tab 07/15/21 07/25/21 Rx Docusate [Colace] 100 mg PO BID #60 capsule 07/15/21 07/25/21 Rx HYDROcodone/APAP 10-325MG [[place] 1 tab PO Q4-6H PRN #40 tab 07/15/21 07/25/21 Rx 10-325] Clindamycin HCl 300 mg PO TID 07/25/21 07/25/21 History Allergies Allergy/AdvReac Type Severity Reaction Status Date / Time amoxicillin Allergy Swelling Verified 07/25/21 11:23 Latex, Natural Rubber Allergy Rash/Hives Verified 07/25/21 11:23 Physical Examination On exam patient is resting comfortably in bed in no acute distress. Patient's alert and oriented 3. Splint is clean, dry and intact to the right lower extremity. Capillary refill is normal at less than 2 seconds to the right lower extremity. Dressing to the right upper thigh is clean, dry and intact. There is no significant swelling of right thigh. Patient has good range of motion of the right knee. Neurovascular status and circulatory status are intact. Results - Labs Labs: Abnormal Lab Results - Last 24 Hours (Table) 07/26/21 Range/Units 05:53 Eosinophils # 0.40 H (0.04-0.35) X 10*3/uL Microbiology - Last 24 Hours (Table) 07/25/21 08:00 Blood Culture - Preliminary Blood No Growth after 24 hours 07/25/21 07:45 Blood Culture - Preliminary Blood No Growth after 24 hours H & H 07/25/21 07/26/21 Range/Units 07:56 05:53 Hgb 15.4 13.9 (11.4-16.0) gm/dL Hct 46.0 42.6 (34.0-46.0) % Result Diagrams: 07/26/21 05:53 07/26/21 05:53 Assessment and Plan Assessment: Status post ORIF of the right ankle and intramedullary nailing of the right tibia on 07/13/2021. (1) Periorbital cellulitis of left eye Current Visit: Yes Status: Acute Code(s): L03.213 - PERIORBITAL CELLULITIS SNOMED Code(s): 753684551 Plan: 1. Strictly nonweightbearing to the right lower extremity. Keep splint clean, dry and intact. 2. Rest and elevate the right lower extremity for swelling. 3. We will continue to follow.
--- NOTE | 2021-07-26 12:41 | P.PN ---
Subjective Progress Note Date: 07/26/21 Principal diagnosis: Periorbital cellulitis Patient was seen and examined. No acute events overnight. Patient reports no changes in her eye swelling and L neck pain. She is quite emotional today. She denies any blurry vision or eye discharge. No nausea or vomiting. No fever or c hills. Objective - Vital Signs Vital signs: Vital Signs Temp 98.6 F 07/26/21 07:25 Pulse 79 07/26/21 08:00 Resp 18 07/26/21 08:00 BP 106/74 07/26/21 07:25 Pulse Ox 93 L 07/26/21 07:25 Intake & Output 07/25/21 07/26/21 07/26/21 18:59 06:59 18:59 Intake Total 418 240 Balance 418 240 Weight 95.254 kg Intake: Oral 418 240 Other: Voiding Method Bedside Commode Bedside Commode Bedside Commode # Voids 1 2 - Exam General: [non toxic], [no distress], [appears at stated age] Derm: [warm], [dry] Head: [atraumatic], [normocephalic], [symmetric], [cervical lymphadenopathy left neck] Eyes: [EOMI], [no lid lag], [anicteric sclera], [swelling around the left periorbital region] Mouth: [no lip lesion], [mucus membranes moist] Cardiovascular: [S1S2 reg], [no murmur] Lungs: [CTA bilateral], [no rhonchi, no rales] , [no accessory muscle use] Ext: [no gross muscle atrophy], [no edema], [no contractures] Neuro: [no focal neuro deficits] Psych: [Alert], [oriented], [appropriate affect] - Labs CBC & Chem 7: 07/26/21 05:53 07/26/21 05:53 Labs: Abnormal Lab Results - Last 24 Hours (Table) 07/26/21 Range/Units 05:53 Eosinophils # 0.40 H (0.04-0.35) X 10*3/uL Microbiology - Last 24 Hours (Table) 07/25/21 08:00 Blood Culture - Preliminary Blood No Growth after 24 hours 07/25/21 07:45 Blood Culture - Preliminary Blood No Growth after 24 hours Assessment and Plan Assessment: #Periorbital cellulitis #Left-sided neck pain #Status post right tibial, fibular, posterior malleolus fracture status post right tibial intramedullary nail and ORIF of the right ankle #Obesity Patient presents with swelling of her left eye. Computed tomography scan is consistent with periorbital cellulitis. She has failed outpatient antibiotic treatment. She'll be continued on Rocephin and vancomycin. Ophthalmology will be consulted for further management of this patient. Her left neck pain is likely related to lymphadenopathy. Her pain will be controlled with Tylenol and [place] as needed. Orthopedic surgery consulted to follow the patient with regard to her recent right tibial IM nail and ORIF of the right ankle, recommends outpatient follow up. Patient would benefit from a structured weight loss program. Her home medication of aspirin will be restarted. DVT prophylaxis: [Heparin] Discussed with: [Patient and ] Anticipated discharge: [1-2 days] Anticipated discharge place: [Home] A total of [45] minutes was spent on the care of this complex patient more than 50% of the time was spent in counseling and care coordination. Patient names her decision maker if she can make decisions for herself. Patient would like to be full code. We will continue IV antibiotics for one more day. Clinically unchanged. Opthalmology consult still pending. Likely DC in 1-2 days.
[2021-07-27] MEDS: HYDROcodone/APAP 10-325MG 1 EACH TAB PO PRN (01:59)
[2021-07-27 07:26] VITALS: RESP 18; TEMP 97.5
[2021-07-27] MEDS ORDERED: VANCOMYCIN TROUGH DUE 1 EACH MISC MISCELLANE ONE (08:00)
[2021-07-27 08:04] VITALS: BP 102/64; PULSE 77
[2021-07-27 08:27] LABS: African American GFR (CKD) >90 (>60 ml/min/1.73 sqM); Anion Gap 7 mmol/L; Blood Urea Nitrogen 10 mg/dL (7-17); Carbon Dioxide 25 mmol/L (22-30); Chloride 109 mmol/L (98-107); Glucose 97 mg/dL (74-99); Non-African American GFR(CKD) >90 (>60 ml/min/1.73 sqM); Sodium 141 mmol/L (137-145)
[2021-07-27] MEDS: HEPARIN SODIUM,PORCINE/PF 5,000 UNIT/0.5 ML SYRINGE SQ SCH (08:32)
[2021-07-27] MEDS: ASPIRIN 81 MG PO SCH (08:33)
[2021-07-27] MEDS: DOCUSATE 100 MG CAP PO SCH (08:33)
[2021-07-27] MEDS: VANCOMYCIN 1,750 MG in SODIUM CHLORIDE 0.9% 500 ML 500 ML IVPB SCH (09:40)
--- NOTE | 2021-07-27 10:44 | P.DS ---
Providers Date of admission: 07/25/21 09:17 Expected date of discharge: 07/27/21 Attending physician: Qi Beck MD Consults: 07/25/21 09:13 Consult Physician Routine Consulting Provider: Marcus Milner Consult Reason/Comments: periorbital cellulitis, left Do you want consulting provider notified?: Yes 07/25/21 09:15 Consult Physician Routine Consulting Provider: Yousif Waters Consult Reason/Comments: s/p right ankle surgical repair Do you want consulting provider notified?: Yes Primary care physician: Isabelle Ding DO Hospital Course: Discharge Diagnosis: Periorbital cellulitis Left-sided neck pain Status post right tibial, tibial, and posterior malleolus fractures resulting in ORIF of right ankle on 07/13/21 Hospital Course: Patient is a very pleasant 50-year-old female who presented to the emergency department on 07/25/21 with a chief complaint of left eye swelling and left-sided neck pain. She reported these symptoms began 2 days prior to coming to the emergency department and that she was started on clindamycin by her PCP but reports despite 2 days of antibiotic treatment she had no improvement and only worsening of symptoms so she felt it was important to be evaluated further. She was seen and fully evaluated in the emergency department. CT soft tissue neck with contrast showing paranasal sinuses, mastoid air cells, and middle ear cavities are all well aerated and revealed mild soft tissue swelling of the anterior periorbital soft tissues with no other significant abnormalities noted. Patient was hospitalized with periorbital cellulitis after failing outpatient treatment with clindamycin and was started on IV antibiotics vancomycin and Rocephin 3 days. Blood cultures showing no growth after 48 hours. Labs remained unremarkable. Vital signs also unremarkable and patient remained afebrile throughout hospitalization. Patient had significant improvement in periorbital swelling/pain and improvement in the erythema. Arrangements were made for patient to follow up with stockroom associate on 07/28/21 at 8:30 AM. Patient to receive final dose of antibiotics at facility and be discharged home on clindamycin and Cefdinir 7 days to total 10 day course of antibiotic therapy. Patient is medically stable at this time and a follow-up as advised with PCP and ophthalmology. Patient to also continue to follow up outpatient with orthopedic for follow-up on ORIF of right ankle completed on 07/13/21. Physical examination: Patient seen and examined at bedside. Vital signs reviewed and stable. General: Nontoxic, no distress and appears stated age. Derm: Skin warm and dry, normal coloration for ethnicity. Head/neck: Atraumatic, normocephalic and symmetric. Patient with slight tenderness upon palpation to left anterior neck, cervical lymphadenopathy present Eyes: EOMs intact, no lid lag, and anicteric sclera. Patient with minimal swelling and erythema to left lateral periorbital region Mouth: no lip lesions, mucus membranes moist Cardiovascular: regular rate and rhythm with normal S1S2, no murmur, positive posterior tibial pulses bilaterally, and cap refill < 2 seconds. Lungs: Respirations even, regular, and unlabored on room air. Lungs CTA bilaterally, no rhonchi, no rales, no wheezing, and no accessory muscle usage. Abdominal: soft, nontender to palpation, no guarding, no appreciable organomegaly Ext: ROM intact. No gross muscle atrophy, no edema, no contractures Neuro: Speech clear, face symmetrical and CN II-XII grossly intact with no noted focal neuro deficits Psych: Alert and oriented to person, place, time, and situation. Appropriate and pleasant affect. A total of 36 minutes of time were spent preparing this complex discharge summary. Pt was discharged on 07/27/21 at 10:41 AM I reviewed the documentation as provided by the RENEE above, who is the original author of this note. I agree with the documented assessment and plan, with the following changes: none Patient Condition at Discharge: Stable Plan - Discharge Summary Discharge Rx Participant: No New Discharge Prescriptions: New Cefdinir 300 mg PO Q12HR 7 Days #14 cap Continue HYDROcodone/APAP 10-325MG [[place] 10-325] 1 tab PO Q4-6H PRN #40 tab PRN Reason: Pain Clindamycin HCl 300 mg PO TID 7 Days #21 cap Aspirin 81 mg PO BID 30 Days #60 tab Docusate [Colace] 100 mg PO BID #60 capsule Discharge Medication List Aspirin 81 mg PO BID 30 Days #60 tab 07/15/21 [Rx] Docusate [Colace] 100 mg PO BID #60 capsule 07/15/21 [Rx] HYDROcodone/APAP 10-325MG [[place] 10-325] 1 tab PO Q4-6H PRN #40 tab 04/27/22 [Rx] Cefdinir 300 mg PO Q12HR 7 Days #14 cap 07/27/21 [Rx] Clindamycin HCl 300 mg PO TID 7 Days #21 cap 07/27/21 [Rx] Follow up Appointment(s)/Referral(s): Marcus Milner MD [STAFF PHYSICIAN] - 07/28/21 8:30 am Isabelle Ding DO [Primary Care Provider] - 1-2 days Patient Instructions/Handouts: Periorbital Cellulitis in Adults (DC) Activity/Diet/Wound Care/Special Instructions: Activity: As tolerated. Take breaks as needed. Diet: Heart healthy and carb consistent diet. Avoid salts, or foods with hidden salts such as canned or boxed foods and frozen dinners. Extra salt makes your heart work harder and traps the fluid in your body for longer. Special Instructions: Take all of your medications as directed and remember to keep all of your doctor's appointments and follow-up as needed. Thank you for allowing us to participate in your care, it was truly a pleasure having you for our patient!!! Discharge Disposition: HOME SELF-CARE
--- NOTE | 2021-07-27 11:14 | P.PN ---
Subjective Progress Note Date: 07/27/21 This is a 50-year-old female who is admitted for periorbital cellulitis. Orthopedics is following due to recent ORIF of the right ankle and intramedullary nailing of the right tibia on 07/13/[address] Waters. Patient is seen and evaluated at bedside today. Patient states that her pain is well-controlled and she denies any new complaints today. Objective - Vital Signs Vital signs: Vital Signs Temp 97.5 F L 07/27/21 08:03 Pulse 77 07/27/21 08:03 Resp 18 07/27/21 08:03 BP 102/64 07/27/21 08:03 Pulse Ox 94 L 07/27/21 08:03 Intake & Output 07/26/21 07/27/21 07/27/21 18:59 06:59 18:59 Intake Total 658 240 Balance 658 240 Intake: Oral 658 240 Other: Voiding Method Bedside Commode Bedside Commode # Voids 3 2 - Exam On exam patient is resting comfortably in bed in no acute distress. Patient's alert and oriented 3. Splint is clean, dry and intact to the right lower extremity. Capillary refill is normal at less than 2 seconds to the right lower extremity. Dressing to the right upper thigh is clean, dry and intact. There is no significant swelling of right thigh. Patient has good range of motion of the right knee. Neurovascular status and circulatory status are intact. - Labs CBC & Chem 7: 07/26/21 05:53 07/27/21 07:49 Labs: Abnormal Lab Results - Last 24 Hours (Table) 07/27/21 Range/Units 07:49 Chloride 109 H (98-107) mmol/L Creatinine 0.51 L (0.52-1.04) mg/dL Microbiology - Last 24 Hours (Table) 07/25/21 08:00 Blood Culture - Preliminary Blood No Growth after 48 hours 07/25/21 07:45 Blood Culture - Preliminary Blood No Growth after 48 hours Assessment and Plan Assessment: Status post ORIF of the right ankle and intramedullary nailing of the right tibia on 07/13/2021. (1) Periorbital cellulitis of left eye Current Visit: Yes Status: Acute Code(s): L03.213 - PERIORBITAL CELLULITIS SNOMED Code(s): 713303911 Plan: 1. Strictly nonweightbearing to the right lower extremity. Keep splint clean, dry and intact. 2. Rest and elevate the right lower extremity for swelling. 3. Patient states that she is being discharged today and she has a follow-up scheduled with Dr. Waters on 07/28/2021 as an outpatient.
== END 2021-07-27 12:46 | disposition home or self-care (01) ==
LOC: EC 07:20 → 6NMEDSUR 09:17
PROVIDERS: ADMIT Family Medicine; ATTEND Family Medicine
DX: L03.213 Periorbital cellulitis (principal); R59.0 Localized enlarged lymph nodes; M54.2 Cervicalgia; E66.9 Obesity, unspecified; Z68.36 Body mass index [BMI] 36.0-36.9, adult; Z71.3 Dietary counseling and surveillance; Z79.82 Long term (current) use of aspirin; Z88.0 Allergy status to penicillin; Z91.040 Latex allergy status; Z90.710 Acquired absence of both cervix and uterus; Z98.890 Other specified postprocedural states
CPT/HCPCS: 99284; 96366 ×3; 96367; 96365; 36415; 80048 ×3; 83735; 85025 ×2; 80202; 87040; 70491; 90715; G0378 ×3; J3370 ×3; J0696 ×3; Q9967